=== PATIENT | male | born 1990 | race Caucasian/White ===

== ENCOUNTER 2017-03-09 08:47 | Emergency (ER) | payer MEDICAID ==
--- NOTE | ~2017-03-09 | CT116 ---
[facility] [[email or web address]]. [facility] A Service [facility] RADIOLOGY TEXT RESULTS PATIENT: CARMINE LOCKWOOD LOCATION: SED : [birth year] UNIT #: [id number] AGE: [address]: Jose Maria Lei MD SEX: M ORDER DR: [id number] [address] [address] [id number] E MR#: [id number] Acc #: [id number] NAME: CARMINE LOCKWOOD : 1990 SEX: M STUDY DATE/TIME: 03/09/2017 10:24 UNIT: SED ROOM: STUDY DESCRIPTION: CT Soft Tissue Neck Wo Cont Attending Physician: Jose Maria Lei M.D. Ordering Physician: Jose Maria Lei M.D. Primary Care Physician: No Primary Care Physician MEDICAL IMAGING REPORT This report is preliminary unless electronic signature is present. EXAM CT scan of the neck with contrast, 03/09/2017. HISTORY Sore throat and difficulty swallowing for 9 days. TECHNIQUE Axial 3-mm images were obtained through the neck without IV contrast. Sagittal and coronal reconstructions were generated. This CT exam was performed with one or more of the following radiation dose reduction techniques: automatic exposure control, adjustment of mA and/or kV according to patient size, and iterative reconstruction. FINDINGS The lung apices are clear. The bones are normal. There is marked prominence of the tonsillar tissue on the left side, extending from the level of the uvula down to the epiglottis. The tissue in this area is about 2 cm in diameter. The epiglottis appears normal. The uvula appears thickened. No abscess is visible. No adenopathy is identified. IMPRESSION 1. The study is limited by lack of IV contrast. There is marked soft tissue prominence on the left side of the naso- and oropharynx extending from the level of the uvula down to the epiglottis. This appears to represent tonsillar enlargement. No discrete abscess is visible, but sensitivity is limited by lack of contrast. 2. The uvula is thickened. The epiglottis is normal. 3. The thyroid gland is normal. Dictated by... [facility] A Service of [facility] RADIOLOGY TEXT RESULTS PATIENT: CARMINE LOCKWOOD LOCATION: SED : [birth year] UNIT #: [id number] AGE: [address]: Jose Maria Lei MD SEX: M ORDER DR: Shaheed Iyer M.D. THIS IS AN ELECTRONICALLY VERIFIED REPORT Shaheed Iyer M.D. at 03/11/2017 6:16 AM Ramirez TD: 03/10/2017 12:19 JOB #: [id number] MEDICAL IMAGING REPORT Page 1 of 1
[~2017-03-09 08:47] MED LIST: CLARITIN10 MG PO; KETOPROFEN PO; LISINOPRIL PO
[2017-03-09] MEDS ORDERED: IBUPROFEN (08:53)
[2017-03-09] MEDS ORDERED: [UNRECOGNIZED DRUG - REMARK] (08:53)
[2017-03-09 09:32] LABS: BASOPHIL# 0.1 X10e3 (0-0.3); BASOPHIL% 0.7 % (0-2.5); EOSINOPHIL# 0.2 X10e3 (0-0.7); EOSINOPHIL% 1.4 % (0.0-7.0); HEMATOCRIT 43.3 % (38.0-50.0); HEMOGLOBIN 14.5 gm/dL (13.0-16.0); LYMPHOCYTE# 1.7 X10e3 (1.0-3.5); LYMPHOCYTE% 12.6 % (17.0-45.0); MEAN CELL VOLUME 86.3 FL (83-96); MEAN CORPUSCULAR HEMOGLOBIN 28.9 PG (28-34); MEAN CORPUSCULAR HGB CONC 33.6 g/dL (30-36); MEAN PLATELET VOLUME 8.2 FL (6.5-11.5); MONOCYTE# 1.2 X10e3 (0-1.0); MONOCYTE% 9.3 % (3.0-12.0); PLATELET COUNT 268 X10e3 (140-420); RED BLOOD COUNT 5.02 X10e (3.90-5.60); RED CELL DISTRIBUTION WIDTH 13.2 % (11.0-15.5); WHITE BLOOD COUNT 13.1 X10e3 (4.0-10.5)
[2017-03-09 09:37] LABS: DIFF IND NO
[2017-03-09 09:47] LABS: BUN/CREATININE RATIO 7.5; CALCIUM SERUM 8.4 mg/dL (8.4-10.2); CREATININE SERUM 0.8 mg/dL (0.6-1.4); GLOM FILT RATE Estimated 122.5 mL/min (>60); POTASSIUM 3.9 mmol/L (3.5-5.1)
== END 2017-03-09 11:29 | disposition home or self-care (01) ==
LOC: SED 08:47
PROVIDERS: Emergency Medicine
DX: J03.90 Acute tonsillitis, unspecified (principal); I10 Essential (primary) hypertension; F17.210 Nicotine dependence, cigarettes, uncomplicated
CPT/HCPCS: 36415; 70490; 80048; 85025; 87040; 87651; 96365; 96375; 99283; J1100